=== PATIENT | male | born 1945 | race Caucasian/White ===

== ENCOUNTER 2017-10-14 06:50 | Day surgery (SDC) | payer MEDICARE ==
[2017-10-14] MEDS ORDERED: TETRACAINE 0.5% OPHTH DROPS 4ML ONE (07:52)
[2017-10-14] MEDS ORDERED: BUPIVACAINE HCL/PF 0.75% (7.5MG/ML) 10ML ONE (07:52)
[2017-10-14] MEDS ORDERED: PHENYLEPHRINE HCL 2.5% OPHTH DROPS 2ML ONE (07:52)
[2017-10-14] MEDS ORDERED: LIDOCAINE HCL/PF 2% 20 MG/ML 10ML VIAL ONE (07:52)
[2017-10-14] MEDS ORDERED: BALANCED SALT IRRIG SOLN 15ML ONE (07:52)
[2017-10-14] MEDS ORDERED: TROPICAMIDE 1% OPHTH DROPS 15ML ONE (07:52)
[2017-10-14] MEDS ORDERED: ACETYLCHOLINE CHLORIDE INTRAOCULAR SOLUTION 1:100 ELECTROLYTE DILUENT IO ONE (07:52)
[2017-10-14 09:16] LABS: CHLORIDE 111 mEq/L (98-107)
[2017-10-14 09:17] LABS: BASOPHILS % 0.5 % (0.0-2.0); EOSINOPHILS % 2.7 % (0.0-5.0); HEMATOCRIT. 33.8 % (42.0-52.0); HEMOGLOBIN. 11.3 g/dL (14.0-18.0); LYMPHOCYTES % 24.5 % (20.0-50.0); MEAN CORPUSCULAR HEMOGLOBIN 30.5 pg (28.0-32.0); MEAN PLATELET VOLUME 9.1 fl (7.4-10.4); MONOCYTES % 6.3 % (2.0-8.0); PLATELET 214 x1000/uL (130-400); RED BLOOD CELL COUNT 3.71 mill/uL (4.7-6.1); RED CELL DISTRIBUTION WIDTH 13.2 % (11.6-14.6)
[2017-10-14] MEDS ORDERED: BALANCED SALT IRRIG SOLN COMB1 500ML OP SCH (09:30)
[2017-10-14] MEDS ORDERED: HYALURONATE SODIUM 14 MG/ML 0.85ML SYRINGE IO ONE (09:31)
[2017-10-14] MEDS ORDERED: MIDAZOLAM HCL 2 MG/2 ML VIAL ONE (09:54)
[2017-10-14] MEDS ORDERED: FENTANYL CITRATE/PF 50MCG/ML 2ML VIAL ONE (09:54)
[2017-10-14] MEDS ORDERED: ONDANSETRON HCL 4MG/2ML VIAL ONE (09:55)
[2017-10-14] MEDS ORDERED: TOBRAMYCIN/DEXAMETH 0.1/0.3% OPHTH SUSP 2.5ML ONE (10:06)
[2017-10-14] MEDS ORDERED: LABETALOL HCL 5MG/ML VIAL 20ML IV ONE (10:18)
== END 2017-10-14 12:40 | disposition home or self-care (01) ==
LOC: OR 06:50
PROVIDERS: ATTEND Ophthalmology
DX: H26.8 Other specified cataract (principal); I10 Essential (primary) hypertension; E11.9 Type 2 diabetes mellitus without complications; E78.00 Pure hypercholesterolemia, unspecified
CPT/HCPCS: 36415; 66984; 80048; 82962; 85025; 88300; 93005; J2250; J2405; J3010; J3490; J7030; V2632